=== PATIENT | male | born 1950 | race Caucasian/White ===

== ENCOUNTER 2021-06-01 03:00 | Observation (INO) | payer MEDICARE, BC, SELFPAY ==
[2021-06-01] VITALS (22 sets, daily range): BP systolic 76–139; BP diastolic 35–76; PULSE 64–95; RESP 12–22; TEMP 35.9–37.2; O2SAT 94–100; BMI 24.7
[2021-06-01] MEDS: SODIUM CHLORIDE 0.9% IV 1,000 ML 100 ML IV CONT (02:00)
--- NOTE | 2021-06-01 03:21 | ECG_ITS ---
Measurements Intervals [place] Rate: 90 P: 57 TN: 159 QRS: 12 QRSD: 98 T: 68 QT: 344 QTc: 422 Interpretive Statements SINUS RHYTHM VENTRICULAR PREMATURE COMPLEX CONSIDER INFERIOR INFARCT, AGE INDETERMINATE BORDERLINE ST-T WAVE ABNORMALITY- ANTEROLAT/HIGH LAT LEADS BASELINE WANDER- V4-V6 ABNORMAL ECG Electronically Signed On 06-01-2021 5:59:57 ASSET PROTECTION REPRESENTATIVE by Brandan Herrera D.O.
[2021-06-01 03:36] LABS: Basophils Percent Auto 0.2 % (0.2-1.2); Hematocrit 33.5 % (42.0-52.0); Hemoglobin 10.8 g/dL (14.0-18.0); Immature Granulocyte Absolute 0.06 K/mm3 (0.00-0.031); Immature Granulocyte Percent A 0.7 % (0-0.5); Lymphocytes Absolute Auto 1.56 K/mm3 (0.9-3.2); Lymphocytes Percent Auto 16.9 % (18.3-44.2); Mean Corpuscular HGB Conc 32.2 g/dl (32-36); Mean Corpuscular Volume 99.4 fl (80-100); Mean Platelet Volume 10.9 fl (7.4-10.4); Monocytes Absolute Auto 0.8 K/mm3 (0.1-0.6); Monocytes Percent Auto 8.6 % (2.6-8.5); Neutrophils Absolute Auto 6.8 K/mm3 (1.3-6.7); Neutrophils Percent Auto 73.6 % (45.5-73.1); Platelet Count Result 183 k/mm3 (150-375); Red Blood Count 3.37 M/mm3 (4.6-6.20); Red Cell Distribution Width 12.9 % (11.5-14.5); White Blood Count 9.2 K/mm3 (4.5-10.0)
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
[2021-06-01 04:28] LABS: Troponin I 0.076 ng/mL (0.000-0.034)
[2021-06-01 05:41] LABS: Lactic Acid Reflex 1.6 mmol/L (0.7-2.1)
[2021-06-01 05:41] LABS: Anion Gap 11 mmol/L (8-16); Blood Urea Nitrogen 64 mg/dL (9-20); Calcium 8.7 mg/dL (8.4-10.2); Carbon Dioxide 20 mmol/L (22-30); Chloride 109 mmol/L (98-107); Estimated CRCL calculation 66 ml/min; Estimated Glomerular Filt Rate > 60; Glucose 101 mg/dL (65-110); Potassium 4.5 mmol/L (3.4-5.0); Sodium 140 mmol/L (137-145)
[2021-06-01 07:13] LABS: Troponin I 0.088 ng/mL (0.000-0.034)
--- NOTE | 2021-06-01 07:54 | PC.NURSE ---
Recieved critical troponin that was drawn on 06/01/21 @ 0630. Elevated tropnin for patient Constantine Castillo 0.088. Dr. Lange made aware of elevated troponin @ 0725 06/01/21, no new orders given. Recieving day ANNA Higgnis made aware of lab result and communication with Dr. Lange with no new orders.
[2021-06-01] MEDS: lisinopriL 2.5 MG TABLET PO (08:27)
[2021-06-01] MEDS: hydrOXYzine HCL 25 MG TABLET PO (08:27)
[2021-06-01] MEDS: LEVOTHYROXINE SODIUM 100 MCG TABLET PO (08:27)
[2021-06-01] MEDS: METOPROLOL SUCCINATE EXT REL 25 MG TABCR PO (08:27)
[2021-06-01] MEDS: PANTOPRAZOLE SODIUM IV 40 MG VIAL IV PUSH ×2 (08:28→21:09)
[2021-06-01] MEDS: LACTATED RINGERS 1,000 ML 150 ML IV CONT (09:15)
--- NOTE | 2021-06-01 09:19 | PC.NURSE ---
JAY herman transport to GI lab without me. GI nurse transported patient to GI lab. Upper GI consent signed. Patient A&O X3. Vital signs stable
--- NOTE | 2021-06-01 09:34 | WPDANESEPPF ---
Anes - Initial Pre Proc Eval Procedure: Operation Date: 06/01/21 12:45 Proposed Procedures p Esophagogastroduodenoscopy - Vance Molina MD Date/Time: 06/01/21 09:34 Surgeon: Delia Cloud DO Pre Op Diagnosis: GI Bleed, Elevated Troponin Patient Data Age: 70 Gender: M Height: 1.75 m Weight: 76.2 kg Last Vital Signs Temp 35.9 C L 06/01/21 08:20 Pulse 95 06/01/21 08:27 Resp 20 06/01/21 08:20 BP 113/69 06/01/21 08:20 Pulse Ox 94 06/01/21 08:20 Allergies Allergy/AdvReac Type Severity Reaction Status Date / Time No Known Allergies Allergy Verified 06/01/21 09:27 Home Medications Medication Instructions Recorded Confirmed Type Acid Walking Dragline Operator (omeprazole) 20 mg PO DAILY 06/01/21 06/01/21 History Multiple Vitamin See Rx Instructions .ROUTE .COMPLEX 06/01/21 06/01/21 History aspirin 81 mg PO DAILY 06/01/21 06/01/21 History atorvastatin 40 mg PO HS 06/01/21 06/01/21 History cholecalciferol (vitamin D3) 50 mcg PO DAILY 06/01/21 06/01/21 History hydroxyzine HCl 25 mg PO DAILY 06/01/21 06/01/21 History ibuprofen 800 mg PO BID 06/01/21 06/01/21 History levothyroxine 100 mcg PO DAILY 06/01/21 06/01/21 History lisinopril 2.5 mg PO DAILY 06/01/21 06/01/21 History metoprolol succinate 25 mg PO DAILY 06/01/21 06/01/21 History prednisone 10 mg PO DAILY 06/01/21 06/01/21 History zolpidem 10 mg PO DAILY 06/01/21 06/01/21 History Laboratory Tests 06/01/21 06/01/21 06/01/21 03:30 03:30 03:31 WBC 9.2 K/mm3 K/mm3 (4.5-10.0) RBC 3.37 M/mm3 L M/mm3 (4.6-6.20) Hgb 10.8 g/dL L g/dL (14.0-18.0) Hct 33.5 % L % (42.0-52.0) MCV 99.4 fl fl (80-100) MCH 32.0 pg pg (26-34) MCHC 32.2 g/dl g/dl (32-36) RDW 12.9 % % (11.5-14.5) Plt Count 183 k/mm3 k/mm3 (150-375) MPV 10.9 fl H fl (7.4-10.4) Immature Gran % (Auto) 0.7 % H % (0-0.5) Neut % (Auto) 73.6 % H % (45.5-73.1) Lymph % (Auto) 16.9 % L % (18.3-44.2) [place] % (Auto) 8.6 % H % (2.6-8.5) Eos % (Auto) 0.0 % % (0-4.4) Baso % (Auto) 0.2 % % (0.2-1.2) Lymph # (Auto) 1.56 K/mm3 K/mm3 (0.9-3.2) [place] # (Auto) 0.8 K/mm3 H K/mm3 (0.1-0.6) Eos # (Auto) 0.0 K/mm3 K/mm3 (0-0.3) Baso # (Auto) 0.0 K/mm3 K/mm3 (0.0-0.1) Abs Immat Gran (auto) 0.06 K/mm3 H K/mm3 (0.00-0.031) Absolute Neuts (auto) 6.8 K/mm3 H K/mm3 (1.3-6.7) Absolute Nucleated RBC 0.0 K/mm3 K/mm3 (0.0-0.012) Nucleated RBC % 0.0 % % (0.0-0.2) Sodium 140 mmol/L mmol/L (137-145) Potassium 4.5 mmol/L mmol/L (3.4-5.0) Chloride 109 mmol/L H mmol/L (98-107) Carbon Dioxide 20 mmol/L L mmol/L (22-30) Anion Gap 11 mmol/L mmol/L (8-16) BUN 64 mg/dL H mg/dL (9-20) Creatinine 0.90 mg/dL mg/dL (0.7-1.3) Estim Creat Clear Calc 66 ml/min ml/min Estimated GFR > 60 (59 - ) Glucose 101 mg/dL mg/dL (65-110) Lactic Acid 1.6 mmol/L mmol/L (0.7-2.1) Calcium 8.7 mg/dL mg/dL (8.4-10.2) Troponin I 06/01/21 06/01/21 03:31 06:31 WBC RBC Hgb Hct MCV MCH MCHC RDW Plt Count MPV Immature Gran % (Auto) Neut % (Auto) Lymph % (Auto) [place] % (Auto) Eos % (Auto) Baso % (Auto) Lymph # (Auto) [place] # (Auto) Eos # (Auto) Baso # (Auto) Abs Immat Gran (auto) Absolute Neuts (auto) Absolute Nucleated RBC Nucleated RBC % Sodium Potassium Chloride Carbon Dioxide Anion Gap BUN Creatinine Estim Creat Clear Calc E
--- NOTE | 2021-06-01 09:44 | WPDGICN ---
Assessment and Plan Assessment and plan (1) Upper GI bleed: Code(s): K92.2 - Gastrointestinal hemorrhage, unspecified Status: Acute Assessment and Plan: new onset of melena with hematemesis, he has been taking nsaid's for quite some time will proceed with urgent egd started on iv protonix and nsaid's discontinued (2) Melena: Code(s): K92.1 - Melena Status: Acute Assessment and Plan: urgent egd (3) Hematemesis: Qualifiers: Nausea presence: with nausea Qualified Code(s): K92.0 - Hematemesis Code(s): K92.0 - Hematemesis Status: Acute (4) Acute blood loss anemia: Code(s): D62 - Acute posthemorrhagic anemia Status: Acute Assessment and Plan: monitor for more signs of bleeding and trend h/h on iv protonix (5) Elevated troponin: Code(s): R77.8 - Other specified abnormalities of plasma proteins Status: Acute Assessment and Plan: denies chest pain but had previous cardiac surgery ekg (6) Coronary artery disease: Code(s): I25.10 - Atherosclerotic heart disease of [place] coronary artery without angina pectoris Status: Inactive (7) NSAID long-term use: Code(s): Z79.1 - group home (current) use of non-steroidal anti-inflammatories (NSAID) Status: Acute GI Consult Note Consult date/time: 06/01/21 09:44 Reason for consult: melena HPI: Constantine Castillo is a 70 year old male with CAD s/p CABG on aspirin, HTN who has been taking ibuprofen mostly daily for last year because chronic pain in right shoulder. He says that has indigestion and reflux for which he has been taking tums as needed but no ppi, then he had injury in left shoulder few weeks ago and he was told to increase ibuprofen twice daily and also use prednisone for 2 weeks. He went to another ER after new onset of melena and also nausea with dark coffee ground emesis, denies previous GIB and never had EGD. He had colonoscopy about 4 years ago. Blood work reviewed, had mild elevated troponin, Hb 10.8 and elevated BUN 64 with normal creatinine, he was transferred to our hospital and started on iv protonix, now he is npo status. Review of Systems Constitutional: Constitutional: Reports weakness Eyes: Eyes: Denies blurry vision ENT: Reports Normal hearing present Cardiovascular: Cardiovascular: Denies chest pain Respiratory: Respiratory: Denies dyspnea Gastrointestinal: Gastrointestinal: Reports melena, Reports nausea and Reports vomiting Genitourinary: Genitourinary: Denies dysuria Musculoskeletal: Comments: shoulder pain Integumentary/Breasts: Skin/Breast: Denies dry skin Neurologic: Denies headache(s) Psychiatric: Psychiatric: Denies behavioral changes [facility] Past Medical History Medical History (Updated 06/01/21 @ 10:27 by Vance Molina MD) Acute blood loss anemia Atrial fibrillation Status post ablation December 2019 Cataracts, bilateral Maturing cataracts Coronary artery disease Essential hypertension GERD (gastroesophageal reflux disease) Hypothyroidism Insomnia Kidney stones NSAID long-term use Vitamin D deficiency Surgical History Surgical History History of left inguinal hernia repair History of tonsillectomy Hx of CABG (~04/2011) 3 vessel CABG [facility] Family History Family History Other Adopted Unknown family medical history Social History Social History Social History: He lives at home with his of 2 years. He has 3 step children and 4 biologic children. He works for the [employer] for 30 years. 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 He drinks alcohol a couple of times a week in moderation. He denies any illicit substance use.
--- NOTE | 2021-06-01 10:29 | PC.NURSE ---
Patient back from GI lab. A&O x3, no distress noted.
[2021-06-01 11:10] LABS: Hematocrit 29.2 % (42.0-52.0); Hemoglobin 9.6 g/dL (14.0-18.0)
--- NOTE | 2021-06-01 11:43 | PM.IMPN ---
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 Status: Acute (6) Elevated troponin: Code(s): R77.8 - Other specified abnormalities of plasma proteins Status: Acute (7) Lactic acidosis: Code(s): E87.2 - Acidosis Status: Acute (8) Acute blood loss anemia: Code(s): D62 - Acute posthemorrhagic anemia Status: Acute (9) NSAID long-term use: Code(s): Z79.1 - assisted (current) use of non-steroidal anti-inflammatories (NSAID) Status: Acute (10) Snoring: Code(s): R06.83 - Snoring Status: Acute (11) Atrial fibrillation: Code(s): I48.91 - Unspecified atrial fibrillation Status: Inactive (12) Coronary artery disease: Code(s): I25.10 - Atherosclerotic heart disease of [place] coronary artery without angina pectoris Status: Acute (13) Essential hypertension: Code(s): I10 - Essential (primary) hypertension Status: Inactive Additional Plan Patient has upper GI bleed evidence by hematemesis and melena as well as elevated BUN. At the outside facility the patient received 1 L normal saline bolus and PPI therapy. Gastroenterology was contacted and agreed to consult. GI bleed likely due to recent use of ibuprofen and prednisone. Ibuprofen and prednisone were held. Hgb 10.8 on admission but unclear on baseline. Monitored serial H&Hs and Hgb 9.6 on repeat. Add iron. His EGD showing esophageal ulcer, gastritis, duodenitis and possibly Barretts. The patient had a mild lactic acidosis at the outside facility but repeat lactic acid level normal. Will stop IV fluids. No plans to resume prednisone or ibuprofen. The patient had mildly elevated troponin at the outside facility. Here, his troponin peaked at 0.088 but overall a flat troponin profile. Patient denies chest pain or symptoms to suggest acute cardiac ischemia. EKG showing Q's in the inferior leads, PVC x1 and ST-T wave changes in lateral leads. Will discuss with his sharepoint trainer Dr Lafleur - call and left message. BP low during EGD but better now. Probably related to anesthesia. Place parameters on his anti-HTN medications. The patient snores chronically. Given his history and crowded posterior oropharynx on exam, concern for obstructive sleep apnea. Could explain the bigeminy. ApneaLink ordered for screening. Check mag level. Metoprolol and ACEI resumed. Hold ASA for 5 days per GI. Continue tele. Lipitor resumed. SCD for DVT prophylaxis. Subjective Date/time seen: 06/01/21 11:43 Interval history: 70yo male with CAD, HTN and AFib here for nausea, vomiting and melena. Assuming care. Chart reviewed. he feels better today. Just back from EGD. No CP or SOB recently prior to admission. He saw his Digital Marketing Officer last year and had LHC sometime in November that showed the grafts were open. In December, he underwent cardiac ablation for his AFib. He has occasional extra beats that his Digital Marketing Officer is aware of Exam Narrative: AF 98.7 103/60 71 12 96% ra Gen - NARD Chest - CTA bilaterally, nml RR CV - RRR S1/S2; Tele showing bigeminy Abd - Soft, NT/ND, Positive BS Ext - No pedal edema Psych - Nml mood and affect Skin - Warm and dry Objective Data Vital Signs Vital Signs: Vital Signs - 24 hr 06/01/21 02:30 06/01/21 03:00 06/01/21 05:00 Temperature 97.5 F L Pulse Rate 90 80 82 Respiratory Rate 20 Blood Pressure 139/72 Pulse Oximetry 97 06/01/21
[2021-06-01 17:14] LABS: Hematocrit 30.6 % (42.0-52.0)
[2021-06-01] MEDS: FERROUS SULFATE 324 MG TABLET PO (17:58)
[2021-06-01] MEDS: ZOLPIDEM TARTRATE (*CRX) 5 MG TABLET 10 MG PO (21:08)
[2021-06-01] MEDS: ATORVASTATIN 40 MG TABLET PO (21:08)
[2021-06-02] VITALS (9 sets, daily range): BP systolic 94–111; BP diastolic 55–64; PULSE 64–81; RESP 20; TEMP 36–36.6; O2SAT 95–98
[2021-06-02 05:12] LABS: Hematocrit 29.9 % (42.0-52.0); Hemoglobin 9.8 g/dL (14.0-18.0); Mean Corpuscular HGB Conc 32.8 g/dl (32-36); Mean Corpuscular Hemoglobin 32.8 pg (26-34); Mean Platelet Volume 11.1 fl (7.4-10.4); Platelet Count Result 160 k/mm3 (150-375); Red Blood Count 2.99 M/mm3 (4.6-6.20); Red Cell Distribution Width 13.2 % (11.5-14.5); White Blood Count 7.2 K/mm3 (4.5-10.0)
[2021-06-02] MEDS: LEVOTHYROXINE SODIUM 100 MCG TABLET PO (05:31)
[2021-06-02 05:42] LABS: Alanine Aminotransferase 13 U/L (4-50); Albumin Level 2.9 g/dL (3.5-5.1); Alkaline Phosphatase 32 U/L (38-126); Anion Gap 4 mmol/L (8-16); Aspartate Amino Transferase 18 U/L (17-59); Bilirubin,Total 0.6 mg/dL (0.2-1.3); Blood Urea Nitrogen 39 mg/dL (9-20); Calcium 8.1 mg/dL (8.4-10.2); Carbon Dioxide 23 mmol/L (22-30); Chloride 111 mmol/L (98-107); Estimated CRCL calculation 66 ml/min; Estimated Glomerular Filt Rate > 60; Glucose 104 mg/dL (65-110); Magnesium 2.1 mg/dL (1.6-2.3); Potassium 4.1 mmol/L (3.4-5.0); Sodium 138 mmol/L (137-145)
--- NOTE | 2021-06-02 09:20 | PM.DS ---
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 Status: Acute (6) Elevated troponin: Code(s): R77.8 - Other specified abnormalities of plasma proteins Status: Acute (7) Lactic acidosis: Code(s): E87.2 - Acidosis Status: Acute (8) Acute blood loss anemia: Code(s): D62 - Acute posthemorrhagic anemia Status: Acute (9) NSAID long-term use: Code(s): Z79.1 - terminal computer operator (current) use of non-steroidal anti-inflammatories (NSAID) Status: Acute (10) Snoring: Code(s): R06.83 - Snoring Status: Acute (11) Atrial fibrillation: Code(s): I48.91 - Unspecified atrial fibrillation Status: Inactive (12) Coronary artery disease: Code(s): I25.10 - Atherosclerotic heart disease of [place] coronary artery without angina pectoris Status: Acute (13) Essential hypertension: Code(s): I10 - Essential (primary) hypertension Status: Inactive DS: Summary Hospital Course Reason for hospitalization: 70yo male with CAD, HTN and AFib here for nausea, vomiting and melena. Please see H&P for details Hospital Course: Patient presents with ER at [facility] with coffee-ground emesis and melena. He was felt to have upper GI bleed evidence by hematemesis and melena as well as elevated BUN. At the outside facility,his Hgb 12.4, COVID negative and elevated Trop. The patient received 1 L normal saline bolus and PPI therapy. Gastroenterology was contacted and agreed to consult. GI bleed likely due to recent use of ibuprofen and prednisone. Ibuprofen and prednisone were started due to shoulder pain and these medications were held. Hgb 10.8 on admission here. Monitored serial H&Hs and Hgb remained stable 9-10. He underwent EGD 06/01/21 showing esophageal ulcer, gastritis, duodenitis and possibly Barretts. Biopsy's taken. The patient had a mild lactic acidosis at the outside facility but repeat lactic acid level normal. The patient had mildly elevated troponin at the outside facility. Here, his troponin peaked at 0.088 but overall a flat troponin profile. Patient denied chest pain or symptoms to suggest acute cardiac ischemia. EKG showing Q's in the inferior leads, PVC x1 and borderline ST-T wave changes in anterolateral leads. Discussed with his medical assistant Dr Lafleur. Patient had a LHC in August with some chronic findings that could explain the mild troponin leak probably related to the anemia. BP low amari-procedure once but stable since. Probably related to anesthesia. The patient snores chronically. Given his history and crowded posterior oropharynx on exam, concern for obstructive sleep apnea. Could explain the bigeminy. ApneaLink ordered showing AHI 9.4 and RI 12.4 but overall felt the evaluation period was too short to be conclusive. Patient monitored overnight. No issues. He tolerated oral intake. No CP or SOB. He overall did well as a be discharged home on 06/02/2021. Status at Discharge Cognitive/behavioral status at discharge: Stable Time Spent with Patient Time attestation: Total time spent providing and/or coordinating discharge services:35 minutes Time spent: Greater than 30 minutes Exam Narrative: AF 96.8 111/64 70 20 95% ra Gen - NARD Chest - CTA bilaterally, nml RR CV - RRR S1/S2; Tele showing bi and trigeminy Abd - Soft, NT/N
[2021-06-02] MEDS: METOPROLOL SUCCINATE EXT REL 25 MG TABCR PO (09:28)
[2021-06-02] MEDS: hydrOXYzine HCL 25 MG TABLET PO (09:29)
[2021-06-02] MEDS: FERROUS SULFATE 324 MG TABLET PO (09:29)
[2021-06-02] MEDS: lisinopriL 2.5 MG TABLET PO (09:29)
[2021-06-02] MEDS: PANTOPRAZOLE SODIUM IV 40 MG VIAL IV PUSH (09:30)
--- NOTE | 2021-06-02 09:53 | WPDANESPN ---
Anes - Prog Note Post-Op Date/Time: 06/02/21 09:53 Cardiovascular status: normal Respiratory status: normal Airway patency: baseline Mental status: baseline Post-Op hydration status: normal Vital Signs: Last Vital Signs Temp 36.0 C L 06/02/21 08:38 Pulse 70 06/02/21 09:28 Resp 20 06/02/21 08:38 BP 111/64 06/02/21 08:38 Pulse Ox 95 06/02/21 08:38 Pain Score (VAS): 0 I/O: Intake & Output 06/01/21 06/02/21 06/02/21 23:59 07:59 15:59 Intake Total 790 Output Total 900 Balance 790 -900 Laboratory Tests 06/02/21 04:51 06/02/21 04:51 06/01/21 06/01/21 06/01/21 10:42 10:42 17:07 WBC RBC Hgb 9.6 L 10.0 L Hct 29.2 L 30.6 L MCV MCH MCHC RDW Plt Count MPV Sodium Potassium Chloride Carbon Dioxide Anion Gap BUN Creatinine Estim Creat Clear Calc Estimated GFR Glucose Calcium Magnesium Total Bilirubin AST ALT Alkaline Phosphatase Troponin I 0.060 H* D Total Protein Albumin 06/02/21 06/02/21 04:51 04:51 WBC 7.2 RBC 2.99 L Hgb 9.8 L Hct 29.9 L MCV 100.0 MCH 32.8 MCHC 32.8 RDW 13.2 Plt Count 160 MPV 11.1 H Sodium 138 Potassium 4.1 Chloride 111 H Carbon Dioxide 23 Anion Gap 4 L BUN 39 H D Creatinine 0.90 Estim Creat Clear Calc 66 Estimated GFR > 60 Glucose 104 Calcium 8.1 L Magnesium 2.1 Total Bilirubin 0.6 AST 18 ALT 13 Alkaline Phosphatase 32 L Troponin I Total Protein 5.0 L Albumin 2.9 L Post-procedural complaints: none Patient Feedback: Patient satisfied with anesthetic care.
--- NOTE | 2021-06-04 09:49 | PC.NURSE ---
Gastric bx results seen by Dr. Woo and faxed to Dr. Payan
== END 2021-06-02 11:47 | disposition home or self-care (01) ==
PROVIDERS: Internal Medicine Gastroenterology; Admitting Provider Internal Medicine; PCP Family Medicine; Visit Provider Internal Medicine
PROC: 0DJ08ZZ Inspection of Upper Intestinal Tract, Via Natural or Artificial Opening Endoscopic (ICD-10-PCS; CPT 43235; principal; 2021-06-01 12:45)
DX: K22.70 Barrett's esophagus without dysplasia (principal); K29.50 Unspecified chronic gastritis without bleeding; K29.80 Duodenitis without bleeding; B96.81 Helicobacter pylori [H. pylori] as the cause of diseases classified elsewhere; K21.00 Gastro-esophageal reflux disease with esophagitis, without bleeding; K44.9 Diaphragmatic hernia without obstruction or gangrene; D62 Acute posthemorrhagic anemia; E03.9 Hypothyroidism, unspecified; E55.9 Vitamin D deficiency, unspecified; I10 Essential (primary) hypertension; I48.91 Unspecified atrial fibrillation; I25.10 Atherosclerotic heart disease of native coronary artery without angina pectoris; R06.83 Snoring; R77.8 Other specified abnormalities of plasma proteins; Z87.891 Personal history of nicotine dependence; Z79.82 Long term (current) use of aspirin; Z79.1 Long term (current) use of non-steroidal anti-inflammatories (NSAID); Z79.52 Long term (current) use of systemic steroids; Z95.1 Presence of aortocoronary bypass graft
CPT/HCPCS: 43239; 36415; 80048; 80053; 83605; 83735; 84484; 85014; 85018; 85025; 85027; 87081; 88305; 88342; 93005; 94762; 96361; 96374; A9270; C9113; G0378; J2001; J2704; J7030; J7120

== ENCOUNTER 2021-12-22 00:16 | Day surgery (SDC) | payer MEDICARE, BC, SELFPAY ==
[2021-11-26 13:36] VITALS: BMI 25.1
[2021-12-22 08:54] VITALS: BP 122/74; PULSE 54; RESP 18; TEMP 36.1; O2SAT 100
--- NOTE | 2021-12-22 09:02 | WPDANESEPPF ---
Anes - Initial Pre Proc Eval Procedure: Operation Date: 12/22/21 10:15 Proposed Procedures p Esophagogastroduodenoscopy - Vance Molina MD Date/Time: 12/22/21 09:02 Surgeon: Vance Molina MD Pre Op Diagnosis: gastritis, esophageal ulcer Patient Data Age: 71 Gender: M Height: 1.78 m Weight: 79.5 kg Last Vital Signs Temp 36.1 C L 12/22/21 08:54 Pulse 54 L 12/22/21 08:54 Resp 18 12/22/21 08:54 BP 122/74 12/22/21 08:54 Pulse Ox 100 12/22/21 08:54 O2 Del Method Room Air 12/22/21 08:54 Allergies Allergy/AdvReac Type Severity Reaction Status Date / Time No Known Allergies Allergy Verified 12/22/21 08:52 Home Medications Medication Instructions Recorded Confirmed Type levothyroxine 100 mcg tablet 100 mcg PO DAILY 06/01/21 12/22/21 History lisinopril 2.5 mg tablet 2.5 mg PO DAILY 06/01/21 12/17/21 History metoprolol succinate 25 mg 25 mg PO DAILY 06/01/21 12/22/21 History tablet,extended release 24 hr zolpidem 10 mg tablet 12.5 mg PO HS PRN Insomnia 06/01/21 12/17/21 History pantoprazole 40 mg tablet,delayed 40 mg PO BID #60 tabs 11/12/21 12/17/21 Rx release (Protonix) aspirin 81 mg chewable tablet 81 mg PO DAILY 11/26/21 12/17/21 History atorvastatin 40 mg tablet 40 mg PO DAILY 11/26/21 12/17/21 History cholecalciferol (vitamin D3) 50 50 mcg PO DAILY 11/26/21 12/17/21 History mcg (2,000 unit) tablet diazepam 5 mg tablet 5 mg PO Q8H PRN Anxiety 11/26/21 12/17/21 History multivitamin 1 tablet PO DAILY 11/26/21 12/17/21 History Patient hx anesthesia problems: none Family hx anesthesia problems: none Results Review: All pre-operative results and documents have been reviewed as part of the pre-operative evaluation. [facility] Past Medical History Medical History Atrial fibrillation Status post ablation December 2019 Cataracts, bilateral Maturing cataracts Coronary artery disease Essential hypertension GERD (gastroesophageal reflux disease) Hypothyroidism Insomnia Kidney stones NSAID long-term use Vitamin D deficiency Surgical History Surgical History History of left inguinal hernia repair History of tonsillectomy Hx of CABG (~04/2011) 3 vessel CABG [facility] Family History Family History Other Adopted Unknown family medical history Social History Social History Social History: He lives at home with his of 2 years. He has 3 step children and 4 biologic children. He works for the [employer] for 30 years. 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 He drinks alcohol a couple of times a week in moderation. He denies any illicit substance use. Code status: Full code Surrogate decision maker: Smoking packs per day: 1 Smoking cigarettes per day: 20.0 Years smoked: 45 Smoking pack-years: 45.00 Smoking status: Former smoker Tobacco type: cigarettes Second hand tobacco smoke exposure: No Alcohol intake: current Drinks per week: 4 Substance use: never Substance use type: does not use Living arrangements: with family Spiritual care concerns: No Anes - Eval Final PreProcedure Day of Procedure 12/22/21 09:02 Patient weight: normal Heart: regular rate and rhythm Lungs: clear to auscultation Airway: Mallampati scale class II Neurological: alert and oriented Last oral intake: >/= 8 hours ASA classification: III Emergent: no Anesthetic plan: proceed Anesthesia type and monitoring: general GIVS and standard monitoring Results Review: All pre-operative results and documents have been reviewed as part of the pre-operative evaluation. Informed Consent: The patient's anesthetic
[2021-12-22] MEDS: LACTATED RINGERS 1,000 ML 150 ML IV CONT (09:07)
--- NOTE | 2021-12-22 09:56 | PM.HPGS ---
History of Present Illness History of Present Illness Consent: Risks, benefits, and alternatives have been discussed and questions answered. Patient agrees to proceed with procedure. Chief complaint: gastritis, esophageal ulcer Narrative: Constantine Castillo is a 71 year old male with ulcer at [facility] [place] and H pylori s/p treatment, doing well now using ppi Review of Systems Constitutional: Constitutional: Denies headache(s) and Denies weakness Eyes: Eyes: Denies blurry vision ENT: Reports Normal hearing present, Denies headache(s) and Denies neck pain Cardiovascular: Cardiovascular: Denies chest pain and Denies dyspnea Respiratory: Respiratory: Denies dyspnea Gastrointestinal: Gastrointestinal: Reports no additional gastrointestinal complaints Genitourinary: Genitourinary: Denies dysuria Musculoskeletal: Musculoskeletal: Denies neck pain Integumentary/Breasts: Skin/Breast: Denies dry skin Neurologic: Reports Normal hearing present, Denies headache(s) and Denies weakness Psychiatric: Psychiatric: Denies anxiety Endocrine: Endocrine: Denies change in body appearance Hematologic/Lymphatic: Hematologic/Lymphatic: Denies easy bleeding Allergic/Immunologic: Allergic/Immunologic: Denies urticaria [facility] Past Medical History Medical History Atrial fibrillation Status post ablation December 2019 Cataracts, bilateral Maturing cataracts Coronary artery disease Essential hypertension GERD (gastroesophageal reflux disease) Hypothyroidism Insomnia Kidney stones NSAID long-term use Vitamin D deficiency Surgical History Surgical History History of left inguinal hernia repair History of tonsillectomy Hx of CABG (~04/2011) 3 vessel CABG [facility] Family History Family History Other Adopted Unknown family medical history Social History Social History Social History: He lives at home with his of 2 years. He has 3 step children and 4 biologic children. He works for the [employer] for 30 years. 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 He drinks alcohol a couple of times a week in moderation. He denies any illicit substance use. Code status: Full code Surrogate decision maker: Smoking packs per day: 1 Smoking cigarettes per day: 20.0 Years smoked: 45 Smoking pack-years: 45.00 Smoking status: Former smoker Tobacco type: cigarettes Second hand tobacco smoke exposure: No Alcohol intake: current Drinks per week: 4 Substance use: never Substance use type: does not use Living arrangements: with family Spiritual care concerns: No Meds Home Medications and Allergies Home Medications Medication Instructions Recorded Confirmed Type levothyroxine 100 mcg tablet 100 mcg PO DAILY 06/01/21 12/22/21 History lisinopril 2.5 mg tablet 2.5 mg PO DAILY 06/01/21 12/17/21 History metoprolol succinate 25 mg 25 mg PO DAILY 06/01/21 12/22/21 History tablet,extended release 24 hr zolpidem 10 mg tablet 12.5 mg PO HS PRN Insomnia 06/01/21 12/17/21 History pantoprazole 40 mg tablet,delayed 40 mg PO BID #60 tabs 11/12/21 12/17/21 Rx release (Protonix) aspirin 81 mg chewable tablet 81 mg PO DAILY 11/26/21 12/17/21 History atorvastatin 40 mg tablet 40 mg PO DAILY 11/26/21 12/17/21 History cholecalciferol (vitamin D3) 50 50 mcg PO DAILY 11/26/21 12/17/21 History mcg (2,000 unit) tablet diazepam 5 mg tablet 5 mg PO Q8H PRN Anxiety 11/26/21 12/17/21 History multivitamin 1 tablet PO DAILY 11/26/21 12/17/21 History Allergies Allergy/AdvReac Type Severity Reaction Status Date / Time No Known Allergies Allergy Verified 12/22/21 08:52 Vital Signs Vital Signs - 24 hr
[2021-12-22 10:25] VITALS: BP 92/55; PULSE 51; RESP 15; O2SAT 92
[2021-12-22 10:35] VITALS: BP 98/59; PULSE 50; RESP 17; O2SAT 97
[2021-12-22 10:45] VITALS: BP 119/76; PULSE 54; RESP 19; O2SAT 97
== END 2021-12-22 11:03 | disposition home or self-care (01) ==
PROVIDERS: Visit Provider Internal Medicine Gastroenterology
PROC: 0DJ08ZZ Inspection of Upper Intestinal Tract, Via Natural or Artificial Opening Endoscopic (ICD-10-PCS; CPT 43235; principal; 2021-12-22 10:15)
DX: K21.9 Gastro-esophageal reflux disease without esophagitis (principal); K44.9 Diaphragmatic hernia without obstruction or gangrene; K22.70 Barrett's esophagus without dysplasia; K29.50 Unspecified chronic gastritis without bleeding; I48.91 Unspecified atrial fibrillation; I25.10 Atherosclerotic heart disease of native coronary artery without angina pectoris; I10 Essential (primary) hypertension; E03.9 Hypothyroidism, unspecified; G47.00 Insomnia, unspecified; E55.9 Vitamin D deficiency, unspecified; Z95.1 Presence of aortocoronary bypass graft; Z87.891 Personal history of nicotine dependence; Z79.82 Long term (current) use of aspirin; Z87.11 Personal history of peptic ulcer disease
CPT/HCPCS: 43239; 87081; 88305; 88342; J2704; J7120

== ENCOUNTER 2025-02-12 00:23 | Day surgery (SDC) | payer MEDICARE, BC, SELFPAY ==
--- NOTE | 2025-02-05 13:24 | SUR.PREOP ---
Spoke with Dr. Benavides about patient not being able to ideally hold his Plavix until 09-21-[address] Julien Lafleur. Discussed with Dr. Benavides his findings from his EGD in 2021. Dr. Benavides ok with pt proceeding with his EGD on 02/12 and not holding his Plavix prior to his upcoming EGD procedure.
[2025-02-07 10:54] VITALS: BMI 26.6
--- NOTE | 2025-02-07 11:41 | PC.NURSE ---
Pt verbalizes understanding that he is not to hold plavix or his aspirin for the procedure.
--- OUTSIDE RECORDS SUMMARY | 2025-02-12 00:27 | XMS_ITS | Clinical Summary ---
Author Organization [facility] Address [facility] [place] [address] Care Team Providers Care Payroll Supervisor Name Role Phone Non-Staff, Provider Primary Care Provider Unavai lable Allergies No known active allergies Medications Cholecalciferol (VITAMIN D) 50 MCG (1999) Tab Take 2 tablets by mouth daily. Active ATORVASTATIN 40 MG tabletIndications:H igh cholesterol TAKE 1 TABLET BY MOUTH EVERY DAY AT BEDTIME 90 tablet 1 Active Aspirin Buf,LlVhft-LsGsom-D gO, 81 MG Tab Active Multiple Vitamin (DAILY-JHONNY) Tab Take 1 tablet by mouth daily. Active omeprazole 20 MG capsule Take 20 mg by mouth daily. Active hydrOXYzine 25 MG tabletIndications:I nsomnia Take 1 tablet by mouth daily as needed for sleep if wake up during the night. Do not take at same time as Zolpidem 30 tablet 2 1 Active levothyroxine 100 MCG tabletIndications:A cquired hypothyroidism Take 1 tablet (100 mcg total) by mouth every morning. 90 tablet 1 2 Active lisinopril 2.5 MG tabletIndications:E ssential hypertension Take 1 tablet (2.5 mg total) by mouth daily. 90 tablet 1 2 Active metoprolol succinate ER 25 MG 24 hr tabletIndications:E ssential hypertension Take 0.5 tablets (12.5 mg total) by mouth daily. 45 tablet 1 2 Active multi vitamin/minerals tablet Take 1 tablet by mouth. Active pantoprazole EC 40 MG tablet Take 40 mg by mouth daily. Active ferrous sulfate EC 325 (65 Fe) MG tabletIndications:A nemia, unspecified type Take 1 tablet (325 mg total) by mouth daily with breakfast. 90 tablet 2 Active zolpidem CR 6.25 MG tabletIndications:I nsomnia Take 1 tablet (6.25 mg total) by mouth nightly as needed for Sleep. 30 tablet 2 Active oxyCODONE-acetamino phen 5-325 MG tablet Take 43,467 tablets by mouth every 4 (four) hours as needed. FOR PAIN 2 Active traMADol 50 MG tablet Take 2,173,350 mg by mouth every 8 (eight) hours as needed. FOR PAIN 2 Active diazePAM 5 MG tablet Take 5 mg by mouth every 8 (eight) hours as needed. 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 06/05/2021 Acute blood loss anemia (ABLA) 06/05/2021 Heart attack 09/06/2019 Hypothyroid 09/06/2019 High cholesterol 09/06/2019 Coronary artery disease invo lving [place] coronary artery of [place] heart without angina pectoris 09/06/2019 Essential hypertension 09/06/2019 Encounters Date Type Department Care Team Description 11/20/2024 10:21 AM CDT - 11/20/2024 11:36 AM CDT Emergency [facility] [place] [address] Tricia Aparicio, GARAGE DOOR HANGER Foot Swelling Discharge Disposition: Home or Self Care (Routine Discharge) 11/20/2024 Travel from Last 3 Months Immunizations Immunization Administration Dates Next Due Fluzone High Dose - >Age 65 (Prefilled Syringe) 03/07/2020,04/23/2019,01/24/2017 [employer]Tu ([employer]) COVID-19 AD26 VACCINE 0.5 ML IM SUSP 06/20/2020 PFIZER COVID-19 (ORIGINAL FO RMULATION, PURPLE CAP) mRNA, LNP-S, PF, 30 MCG/0.3 ML DOSE 04/08/2021 Pneumococcal (Pneumovax 23) 08/07/2018, 2 Pneumococcal (Prevnar 13) 07/25/2015 Tdap (Generic) 06/12/2015 Family History * Patient is adopted Relation Status Comments Father Mother Social History Tobacco Use Types Packs/Day Years Used Date Smoking Tobacco: Former Cigarettes Q uit: 05/08/2010 Smokeless Tobacco: Never Tobacco Cessation:Counseling Given: No Alcohol Use Standard Drinks/Week Comments Yes 0 (1 standard drink = 0.6 oz pur e alcohol) occsionally PHQ-2 Answer Date Recorded PHQ-2 Score - If the patient scores above 3, please move on to questions 3-9 0 04/21/2021 Sex and Gender Information Value Date Recorded Sex Assigned at Not on file Legal Sex Male 2:04 PM CDT Gender Identity Not on file Sexual Orientation Not on file Last Filed Vital Signs Vital Sign Reading Time Taken Comments Blood Pressure 143/85 11/20/2024 11:28 AM CDT Pulse 63 11/20/2024 11:28 AM CDT Temperature 36.8 C (98.2 F) 11/20/2024 9:56 AM CDT Respiratory Rate 18 11/20/2024 11:28 AM CDT Oxygen Saturation 100% 11/20/2024 11:28 AM CDT Inhaled Oxygen Concentration - - Weight 81.6 kg (180 lb) 11/20/2024 9:56 AM CDT Height 175.3 cm (5' 9) 11/20/2024 9:56 AM CDT Body Mass Index 26.58 11/20/2024 9:56 AM CDT Plan of Treatment Health Maintenance Due Date Last Done Comments ASCVD Statin 1950 Colorectal Cancer Screening Colonoscopy (10 Years) 1950 EGD-Khan's Surveillance 1950 Hepatitis C 08/05/1967 Zoster Vaccines (1 of 2) 08/05/1999 Annual Medicare Wellness Visit 2014 ASCVD LDL 03/07/2021 03/07/2020 RSV Immunization or 60+ Years (1 - 1-dose 75+ series) 2024 COVID-19 Vaccine ( - season) 2024 04/08/2021, 06/20/2020 Influenza Adult (#1) 2025 02/15/2024, 03/07/2020, 04/23/2019, Additional history exists DTaP, Tdap and Td Vaccines (2 - Td or Tdap) 06/12/2025 06/12/2015 AAA SCREENING Completed 04/21/2017, 12/29/2015 Pneumococcal Vaccine: 50+ Years Completed 08/07/2018, 07/25/2015, 03/14/2012 Hepatitis A Vaccines Aged Out No long er eligible based on patient's age to complete this topic Meningococcal B Vaccine Aged Out No l onger eligible based on patient's age to complete this topic Meningococcal Vaccine Aged Out No helen julia eligible based on patient's age to complete this topic RSV Immunizations Under 20 Months Aged Out No longer eligible based on patient's age to complete this topic Procedures Procedure Name Priority Date/Time Associated Diagnosis Comments XR ANKLE RT M3V STAT 11/20/2024 10:53 AM CDT LIPID PANEL Routine 03/07/2020 8:13 AM FIRE MANAGEMENT TECHNICIAN High cholesterol from Last 3 Months or Most Recently Relevant to Health Maintenance Results * XR ANKLE RT M3V (11/20/2024 10:53 AM CDT) Anatomical Region Laterality Modality Ankle Radiographic Kaylin ging 11/20/2024 10:5 9 AM CDT Impressions 11/20/2024 11:02 AM CDT =====IMPRESSION:===== 1. Nonspecific soft tissue swelling. 2. Atherosclerosis. 3. No acute bone abnormality demonstrated. Ordered By: TRICIA APARICIO Interpreted By: Boaz Ortiz MD, 11/20/2024 10:59 AM Narrative 11/20/2024 11:02 AM CDT [facility] [address] [place], [place] [address] Exam date/time: 11/20/2024 10:36 AM Examination: Right ankle 3 views Reason For Exam: Right ankle pain and swelling Comparison: None Findings: No acute fracture or dislocation. The bones well aligned. Joint spaces are intact. Minimal degenerative changes with a few tiny spurs. Minimal vascular calcifications. Mild diffuse soft tissue swelling. No radiopaque foreign bodies. Procedure Note Boaz Ortiz MD - 11/20/[address] [address] Exam date/time: 11/20/2024 10:36 AM Examination: Right ankle 3 views Reason For Exam: Right ankle pain and swelling Comparison: None Findings: No acute fracture or dislocation. The bones well aligned. Jointspaces are intact. Minimal degenerative changes with a few tiny spurs.Minimal vascular calcifications. Mild diffuse soft tissue swelling. Noradiopaque foreign bodies. =====IMPRESSION:===== 1. Nonspecific soft tissue swelling. 2. Atherosclerosis. 3. No acute bone abnormality demonstrated. Ordered By: TRICIA APARICIO Interpreted By: Boaz Ortiz MD, 11/20/2024 10:59 AM Tricia Aparicio GARAGE DOOR HANGER [facility] Final Resul t * (ABNORMAL) LIPID PANEL (03/07/2020 8:13 AM FIRE MANAGEMENT TECHNICIAN) CHOLESTEROL 113 <200.0 MG/DL 03/07/2020 2:49 PM FIRE MANAGEMENT TECHNICIAN [facility] TRIGLYCERIDES 65 <150 MG/DL 03/07/2020 2:49 PM FIRE MANAGEMENT TECHNICIAN [facility] HDL 38(L) >40.0 MG/DL 03/07/2020 2:49 PM FIRE MANAGEMENT TECHNICIAN [facility] LDL (CALCULATED) 62 <100 MG/DL 03/07/20 2:49 PM FIRE MANAGEMENT TECHNICIAN [facility] NON HDL CHOLESTEROL 75 <130 MG/DL 03/07 2:49 PM FIRE MANAGEMENT TECHNICIAN [facility] CHOL/HDL RATIO 3.0 0.0 - 4.5 03/07/2020 2:49 PM [facility] VLDL CALCULATION 13 5 - 55 MG/DL 03/07/2020 2:49 PM [facility] LIPID INTERPRETATION 03/07/2020 2:49 PM [facility] Comment: [facility] CONCENSUS REPORT RECOMMENDATIONS: ADULT CHILD LOW RISK: CHOLESTEROL <200 <170 TRIGLYCERIDE <150 --- HDL >=60 --- LDL <100 <110 BORDERLINE: CHOLESTEROL 200-239 170-199 TRIGLYCERIDE 150-199 --- HDL 40-59 --- LDL 100-159 110-129 HIGH RISK: CHOLESTEROL >=240 >=200 TRIGLYCERIDE >=200 --- HDL <40 --- LDL >=160 >=130 03/07/2020 8:13 AM FIRE MANAGEMENT TECHNICIAN us Hardeep Payan MD LABORATORY Final Resul t [facility] [address] [place] [address], from Last 3 Months or Most Recently Relevant to Health Maintenance Insurance MEDICARE [facility] Care Teams Payroll Supervisor Relationship Specialty Start Date End Date Non-Staff, Provider PCP - General 07/23/21
--- OUTSIDE RECORDS SUMMARY | 2025-02-12 00:28 | XMS_ITS | Clinical Summary ---
Author Organization [facility] Address [address] [place] [address] Care Team Providers Care Engine Turner Name Role Phone Alon Ventura MD Primary Care Provid er Allergies Active Allergy Reactions Criticality Noted Date Comments No Known Allergies 06/22/2002 Medications pantoprazole (PROTONIX) 40 mg Tablet, Delayed Release (E.C.) Take 40 mg by mouth daily. 06/02/19 22 Active cholecalciferol, Vitamin D3, 50 mcg (2,000 unit) Tablet Take 2 Tablets by mouth daily. Active aspirin (ECOTRIN EC) 81 mg Tablet, Delayed Release (E.C.) Take by mouth. Active traZODone (DESYREL) 50 mg tablet One nightly 04/14/20 23 Active Miebo, PF, 100 % Drops 07/31/19 25 Active atorvastatin (LIPITOR) 40 mg tablet TAKE 1 TABLET(40 MG) BY MOUTH DAILY AT BEDTIME 100 Tablet 3 11/21/19 25 Active lisinopriL (PRINIVIL) 2.5 mg tabletIndication s:Essential hypertension TAKE 1 TABLET(2.5 MG) BY MOUTH DAILY 90 Tablet 11/15/19 25 Active busPIRone (BUSPAR) 5 mg tabletIndication s:Anxiety state TAKE 1 TABLET(5 MG) BY MOUTH TWICE DAILY 180 Tablet 11/24/19 25 Active sildenafiL (VIAGRA) 25 mg tablet Take 1 Tablet (25 mg) by mouth 1 time daily as needed for Erectile Dysfunction. 10 Tablet 3 12/19/19 25 Active zolpidem (AMBIEN CR) 12.5 mg Controlled Release tabletIndication s:Insomnia, unspecified type TAKE 1 TABLET(12.5 MG) BY MOUTH EVERY NIGHT NEEDED FOR INSOMNIA 90 Tablet 12/19/19 25 Active metoprolol succinate (TOPROL XL) 25 mg Extended Release 24 hour tabletIndication s:PVC (premature ventricular contraction) Take 0.5 Tablets (12.5 mg) by mouth daily. 90 Tablet 1 01/05/20 25 Active levothyroxine 100 mcg tabletIndication s:Hypothyroidism , unspecified type TAKE 1 TABLET BY MOUTH DAILY BEFORE BREAKFAST 90 Tablet 01/11/20 25 Active clopidogreL (PLAVIX) 75 mg Tablet TAKE 1 TABLET BY MOUTH EVERY DAY 150 Tablet 01/18/20 25 Active clopidogreL (PLAVIX) 75 mg Tablet Starting 09/23: Take 1 Tablet (75 mg) by mouth daily. 90 Tablet 1 5 10:02 AM CDT 09/24/19 25 025 Discontinued Active Problems Patient Care Coordination No te Formatting of this note migh t be different from the original. Court Monitor - Dr. Joey Lafleur EP - Les Tellez NP Problem Noted Date Diagnosed Date S/P drug eluting coronary st ent placement. ROBE to the RCA 10/1009/22/2024 Prediabetes 05/16/2023 PVC (premature ventricular contraction). Ablatio n 202002/10/2021 Cardiomyopathy. EF 40% in 20 21 (possible PVC induced/ischemic) 02/10/2021 Mixed hyperlipidemia 10/03/2017 Gastroesophageal reflux disease 06/14/2017 Insomnia 06/14/2017 Hypothyroidism 06/14/2017 Essential hypertension 03/18/2015 S/P CABG x 3, [facility] 04/29 , occluded SVG to LCx (now chronically occluded) 03/19/2014 S/P CABG x 3, [facility] 04/2903/27/2013 CAD (coronary artery disease) 03/27/2013 Old myocardial infarction 09/19/2012 Resolved Problems Problem Noted Date Diagnosed Date Resolved Date Mixed hyperlipidemia, mild i nferior hypokinesis 03/27/2013 12/14/2022 Mixed hyperlipidemia 09/19/2012 015 HTN (hypertension) 09/19/2012 8 Depressive disorder, not elsewhere classified 06/23/19 03 07/07/2021 Tobacco use disorder 06/22/2002 022 Encounters Date Type Department Care Team Description 02/05/2025 External Device Data ST[facility] ABSTRACTION Provider, Abstract 01/29/2025 Telephone [facility] At [address] [place] [address] Julien Lafleur MD egd question 01/17/2025 Refill [facility] [address] [place] [address] Ana Benitez, NAVIN 01/10/[address] [address] Alon Ventura MD Hypothyroidism, unspecified type 01/03/2025 Refill [facility] [address] [place] [address] Julien Lafleur MD PVC (premature ventricular contraction). Ablation 202001/03/[address] [address] Alon Ventura MD 01/01/2025 External Device Data [facility] ABSTRACTION Provider, Abstract 12/18/[address] [address] Alon Ventura MD Insomnia, unspecified type 12/05/2024 11:30 AM CDT Office Visit [address] [phone] Yael Cabrera FNP Follow-up exam after treatment (Primary Dx); Insomnia, unspecified type 11/29/[address] [address] Alon Ventura MD H f/up 11/23/2024 1:58 PM CDT - 11/23/2024 11:59 PM CDT Hospital Encounter [facility] Imaging Services [address] [address] [phone] Alon Ventura MD Discharge Disposition: Home or Self Care 11/23/2024 Results Follow-Up [address] [address] LUNG SCREENING (FOLLOW UP LOW DOSE) 11/23/[address] [phone] Alon Ventura MD Anxiety state 11/13/[address] [phone] Alon Ventura MD Essential hypertension from Last 3 Months Immunizations Immunization Administration Dates Next Due (ADACEL/BOOSTRIX)(10 YR UP) TDAP VACCINE, 0.5ML, IM 06/12/2015 (FELISHA) COVID-19 VACCINE - EMERGENCY USE AUTHORIZATION, AD26,COV2S(PF) 0.5 ML IM SUSP 06/20/2020 (PNEUMOVAX 23)(50 YRS UP) PN EUMOCOCCAL POLYSACCHARIDE (PPV23) 0.5 ML, IM 08/07/2018,03/14/2012 (PREVNAR 13)(6 WKS UP) PNEUM OCOCCAL CONJUGATE (PCV13) 0.5 ML, IM 07/25/2015 INFLUENZA VACCINE HIGH DOSE QUADRIVALENT 65 YR UP PF IM 03/07/2020,04/23/2019,01/24/2017 INFLUENZA VACCINE HIGH DOSE TRIVALENT SPLIT VIRUS, (65 YR UP), 0.5ML (PF), IM 02/15/2024 Social History Tobacco Use Types Packs/Day Years Used Date Smoking Tobacco: Former Cigarettes 1 45 0 06/09/1965 - 06/09/2010 Tobacco Cessation:Counseling Given: Not Answered Alcohol Use Standard Drinks/Week Comments Not Currently 12 (1 standard drink = 0.6 oz pu re alcohol) very rare Financial Resource Strain Answer Date R ecorded How hard is it for you to pa y for the very basics like food, housing, medical care, and heating? Not hard at all 11/11/2022 Food Insecurity Answer Date Recorded In the past 12 months, have you worried that your food would run out before you had money to buy more? Never true 11/11/2022 In the past 12 months, did y ou run out of food and didn't have money to buy more? Never true 11/11/2022 Transportation Needs Answer Date Record ed In the past 12 months, has l ack of transportation kept you from medical appointments or from getting medications? No 11/11/2022 Lack of Transportation (Non-Medical) Not on file 11/11/2022 Sex and Gender Information Value Date Recorded Sex Assigned at Not on file Legal Sex Male 3:08 AM BRAID PATTERN SETTER Gender Identity Not on file Sexual Orientation Not on file Occupation Industry Job Start Date Job End Date Not on file Not on file Not on file Not on file Last Filed Vital Signs Vital Sign Reading Time Taken Comments Blood Pressure 132/70 12/05/2024 12:10 PM CDT Pulse 60 12/05/2024 11:29 AM CDT Temperature 36.7 C (98.1 F) 12/05/2024 11:29 AM CDT Respiratory Rate 16 12/05/2024 11:29 AM CDT Oxygen Saturation 96% 12/05/2024 11:29 AM CDT Inhaled Oxygen Concentration - - Weight 82.2 kg (181 lb 3.2 oz) 12/05/2024 11:29 AM CDT Height 175.3 cm (5' 9) 12/05/2024 11:29 AM CDT Body Mass Index 26.76 12/05/2024 11:29 AM CDT Plan of Treatment Upcoming Encounters Date Type Department Care Team (Late st Contact Info) Description 02/13/2025 10:30 AM CDT Office Visit [facility] [place] [address] [place] [address] Julien Lafleur MD [address] [place] [phone] 03/19/2025 11:30 AM BRAID PATTERN SETTER Office Visit [facility] Family Medicine - [address] [place] [phone] Alon Ventura MD [address] [facility] [address] [place] [address] 04/23/2025 11:00 AM BRAID PATTERN SETTER Office Visit [facility] [place] [address] [place] [address] Julien Lafleur MD [address] [facility] [place] [address] Health Maintenance Due Date Last Done Comments FIT/ DNA Q 3 YEARS (AUTO ORDER) 08/05/1967 FIT-DNA Q 3 years 1994 Flex Sig/CT Colonography Q 5 years 1994 ZOSTER VACCINE (1 of 2) 08/05/1999 FIT/FOBT Q 1 YEAR (AUTO ORDER) 06/22/2003 06/21/2002 FIT/FOBT Q 1 year 06/22/2003 06/21/2002 FLEX SIG/CT COLONOGRAPHY Q 5 YEARS (AUTO ORDER) 12/30/2020 12/31/2015, 12/31/2015 RSV VACCINE (60+ or ) (1 - 1-dose 75+ series) 2024 INFLUENZA VACCINE (#1) 2024 , 03/07/2020, 04/23/2019, Additional history exists COVID-19 Vaccine (3 - 2024-2 6 season) 2024 04/08/2021, 06/20/2020 Traditional Medicare (ACO) A nnual Wellness Visit 02/15/2025 02/15/2024, 11/11/2022, 10/26/2021 Lung Cancer Screening 05/30/2025 05/30/2024 DTAP/TDAP/TD VACCINES (2 - T d or Tdap) 06/12/2025 06/12/2015 COLORECTAL CANCER SCREENING (AUTO ORDER) 12/30/2025 12/31/2015, 12/31/2015 COLORECTAL SCREENING 12/30/2025 12/31/2015, 12/31/2015, 05/02/2015 (Previously completed) Colorectal Cancer Screening (AUTO ORDER) 12/30/2025 Colorectal Cancer Screening 12/30/2025 Abdominal Aortic Aneurysm (A AA) Screening Completed 12/29/2015 PNEUMOCOCCAL VACCINE 50+ YEARS Completed 0 08/07/2018, 01/30/2017 (Previously completed), 07/25/2015, Additional history exists Medical Devices Implanted Type Area Ordnance Technician Device Identifier Shelf Expiration Date Model / Serial / Lot Closure Perclose Proglide [id number] - [id number] Implanted:Qt y: 1 on 01/07/2021 by Albertina York MD at [facility] Closure Device Right: Groin HAJI- VASC DEVICE 08/15/2022 [id number] / / [id number] Stent Synergy Xd [id number] Evrlms Elut [id number] - [id number] Implanted:Qt y: 1 on 09/21/2024 by Julien Lafleur MD at [facility] Stent Right: [employer] HOA [id number] 10/17/2025 [id number] / / [id number] Procedures Procedure Name Priority Date/Time Associated Diagnosis Comments CT LUNG SCREENING (FOLLOW UP LOW DOSE) Routine 11/23/2024 2:35 PM CDT Lung nodule CT LUNG SCREENING (LDCT BASELINE OR ANNUAL) Routine 05/30/2024 11:15 AM BRAID PATTERN SETTER History of tobacco abuse Screening for lung cancer from Last 3 Months or Most Recently Relevant to Health Maintenance Results * CT LUNG SCREENING (FOLLOW UP LOW DOSE) (11/23/2024 2:35 PM CDT) Anatomical Region Laterality Modality Chest Computed Tomogra phy 11/23/2024 2:26 PM CDT Impressions 11/23/2024 4:25 PM CDT IMPRESSION: 1. Category 2 (benign appearance or behavior, <1% chance of malignancy) - continue annual screening with LDCT. DICTATION LOCATION: Location [facility] 11/23/2024 4:25 PM CDT EXAMINATION: CT LUNG SCREENING (FOLLOW-UP LOW-DOSE) DATE: 11/23/2024 2:35 PM TECHNIQUE: CT of the chest was performed without intravenous contrast using a low-dose CT (LDCT) technique according to low-dose lung screening chest CT protocol. The examination was performed with the adjustment of mA according to the patient size and/or the use of Iterative Reconstruction Technique. HISTORY: High-risk screening for lung cancer. Lung nodule, 6-8mm COMPARISON: 05/30/2024 LIMITATIONS: Low-dose, noncontrast technique limits evaluation of the solid viscera and mediastinum. PULMONARY FINDINGS: Nodule 1: 6 mm solid pulmonary nodule in the left lower lobe series 3 (image 283) is unchanged. Lung-RADS (Lung Imaging Reporting and Data System) Category: Category 2 (benign appearance or behavior, <1% chance of malignancy) - category 3 nodules that are stable or decreased at 6 months. Additional calcified pulmonary nodules are seen with specific findings favoring benign nodules. There is mild bibasilar atelectasis. No focal lung consolidation, pneumothorax or pleural effusion. There are changes of pulmonary emphysema. There is pleural scarring at the lung apices, right greater than left. ADDITIONAL FINDINGS: The central airways are widely patent. The aorta is of normal course and normal caliber with mild atherosclerotic calcification. No supraclavicular, axillary, mediastinal, or hilar lymphadenopathy is seen. The heart is enlarged without pericardial effusion. There is coronary artery calcification. Thyroid is enlarged and heterogeneous. Left adrenal nodule is unchanged. No suspicious lytic or blastic osseous lesion or acute fracture. Alon Ventura MD CT ORDERABLES Steph l Result * CT LUNG SCREENING (LDCT BASELINE OR ANNUAL) (05/30/2024 11:15 AM BRAID PATTERN SETTER) Anatomical Region Laterality Modality Chest Computed Tomogra phy 05/30/2024 11:1 3 AM BRAID PATTERN SETTER Impressions 05/30/2024 11:40 AM BRAID PATTERN SETTER IMPRESSION: 1. 5 mm nodule along the left major fissure in the left lower lobe. LUNG RADS Category Lung RADS: Category 3 (Probably Benign); Recommend followup LDCT in 6 months DICTATION LOCATION: [address] 05/30/2024 11:40 AM BRAID PATTERN SETTER CT LUNG SCREENING - LOW DOSE COMPUTED TOMOGRAPHY OF THE THORAX WITHOUT CONTRAST DATE: 05/30/2024 11:15 AM HISTORY: Lung cancer screening, >= 20 pk-yr smoking history (Age >= 50y) TECHNIQUE: Noncontrast, helical low dose CT (LDCT) of chest per standard department protocol. The examination was performed with the adjustment of mA according to the patient size and/or the use of Iterative Reconstruction Technique. COMPARISON: No comparison FINDINGS: Lung screening specific: 5 mm left lower lobe nodules present along the left major fissure. 2Partially calcified right lower lobe nodules are present suggesting granulomas measuring up to 5 mm. Additional findings: Centrilobular emphysema present. There is evidence of coronary bypass. Calcifications are present of the aorta. Limited views the upper abdomen are normal. Coronary artery calcifications are present. Procedure Note Sae Victor MD - 05/30/2024 CT LUNG SCREENING - LOW DOSE COMPUTED TOMOGRAPHY OF THE THORAX WITHOUT CONTRAST DATE: 05/30/2024 11:15 AM HISTORY: Lung cancer screening, >= 20 pk-yr smoking history (Age >= 50y) TECHNIQUE: Noncontrast, helical low dose CT (LDCT) of chest per standard department protocol. The examination was performed with the adjustment of mA according to the patient size and/or the use of Iterative Reconstruction Technique. COMPARISON: No comparison FINDINGS: Lung screening specific: 5 mm left lower lobe nodules present along the left major fissure. 2Partially calcified right lower lobe nodules are present suggesting granulomas measuring up to 5 mm. Additional findings: Centrilobular emphysema present. There is evidence of coronary bypass. Calcifications are present of the aorta. Limited views the upper abdomen are normal. Coronary artery calcifications are present. IMPRESSION: 1. 5 mm nodule along the left major fissure in the left lower lobe. LUNG RADS Category Lung RADS: Category 3 (Probably Benign); Recommend followup LDCT in 6 months DICTATION LOCATION: Location [address] [place] [address] ORDERABLES Steph l Result from Last 3 Months or Most Recently Relevant to Health Maintenance Insurance MEDICARE PART A AND B [employer] Medicare Part D Advance Directives For more information, please contact: [phone] * Full Code (Latest Code Status on File) Date Activated Date Inactivated Comments 09/21/2024 11:07 AM 09/22/2024 12:43 PM * Full Code Date Activated Date Inactivated Comments 01/07/2021 9:08 AM 01/07/2021 8:44 PM * Full Code Date Activated Date Inactivated Comments 09/04/2020 10:28 AM 09/04/2020 4:14 PM * Full Code Date Activated Date Inactivated Comments 09/04/2020 8:05 AM 09/04/2020 10:28 AM Care Teams Engine Turner Relationship Specialty Start Date End Date Alon Ventura MD [address] [place] [phone] PCP - General Family Practice 07/07/21
--- OUTSIDE RECORDS SUMMARY | 2025-02-12 00:28 | XMS_ITS | Encounter Summary ---
Author Organization [facility] Address [address] [place] [address] Care Team Providers Care Barrel Burner Name Role Phone Hardeep Payan MD Primary Care Provider [phone] Non-Staff, Provider Primary Care Provider Lorelei swift Encounter Details Date Type Department Care Team (Late st Contact Info) Description 12/04/2020 [employer] Message Enc [facility] Medical Group Family & Internal Medicine [facility] [id number] [place] [phone] [place] [id number] [place] [address] RE: Test Results Social History Tobacco Use Types Packs/Day Years Used Date Smoking Tobacco: Former Cigarettes Q uit: 05/08/2010 Smokeless Tobacco: Never Alcohol Use Standard Drinks/Week Comments Yes 0 (1 standard drink = 0.6 oz pur e alcohol) occsionally PHQ-2 Answer Date Recorded PHQ-2 Score - If the patient scores above 3, please move on to questions 3-9 1 09/06/2019 Sex and Gender Information Value Date Recorded Sex Assigned at Not on file Legal Sex Male 2:04 PM CDT Gender Identity Not on file Sexual Orientation Not on file documented as of this encounter Plan of Treatment Not on file documented as of this encounter Visit Diagnoses Not on filedocumented in this encounter Additional Health Concerns Infection Onset Date Last Indicated Resolved Time COVID-19 Rule Out 06/01/2021 06/01/2021 06/01/2021 1:20 AM GRANITE WORKER documented as of this encounter Care Teams Barrel Burner Relationship Specialty [place] [address] [place] [address] PCP - General FAMILY PRACTICE 09/06/19 07/22/21 Non-Staff, Provider PCP - General 07/23/21 documented as of this encounter
--- OUTSIDE RECORDS SUMMARY | 2025-02-12 00:28 | XMS_ITS | Encounter Summary ---
Author Organization [facility] Address [address] [place] [address] Care Team Providers Care Dry House Attendant Name Role Phone Hardeep Payan MD Primary Care Provider [phone] Non-Staff, Provider Primary Care Provider Lorelei swift Encounter Details Date Type Department Care Team (Late st Contact Info) Description 06/17/2021 [employer] Message Enc [facility] Medical Group Family & Internal Medicine [address] [address] [employer], [facility] Provider Anemia Social History Tobacco Use Types Packs/Day Years [...] on file Sexual Orientation Not on file COVID-19 Exposure Response Date Recorded In the last 10 days, have yo u been in contact with someone who was confirmed or suspected to have Coronavirus/COVID-19? No / Unsure 06/11/2021 12:43 PM GEM SETTER documented as of this encounter Plan of Treatment Not on file documented as of this encounter Visit Diagnoses Not on filedocumented in this encounter Additional Health Concerns Assessment Noted Time PHQ-9 Depression Total Score: 0 04/21/19 22 2:11 PM GEM SETTER documented as of this encounter Care Teams Dry House Attendant Relationship Specialty [place] [address] [place] [address] PCP - General FAMILY PRACTICE 09/06/19 07/22/21 Non-Staff, Provider PCP - General 07/23/21 documented as of this encounter
--- OUTSIDE RECORDS SUMMARY | 2025-02-12 00:28 | XMS_ITS | Encounter Summary ---
Author Organization [facility] Address [address] [place] [address] Care Team Providers Care Applications Sales Consultant Name Role Phone Alon Ventura MD Primary Care Provid er Encounter Details Date Type Department Care Team (Late st Contact Info) Description 06/21/2002 Outpatient Historical [facility] Internal Medicine - [place] [address] [place] [phone] Ritesh Salinas MD NO ADDRESS ON FILE Social History Tobacco Use Types Packs/Day Years Used Date Smoking Tobacco: Never Assessed Sex and Gender Information Value Date Recorded Sex Assigned at Not on file Legal Sex Male 3:08 AM LIMOUSINE DRIVER Gender Identity Not on file Sexual Orientation Not on file documented as of this encounter Plan of Treatment Upcoming Encounters Date Type Department Care Team (Late st Contact Info) Description 02/13/2025 10:30 AM CDT Office Visit [facility] [place] [address] [place] [phone] Julien Lafleur MD [address] [facility]. [address] [place], [place] [id number] 03/19/2025 11:30 AM LIMOUSINE DRIVER Office Visit [facility] - [place] [address] [facility] [place] [phone] Alon Ventura MD [address] [facility] [address] [place] [address] 04/23/2025 11:00 AM LIMOUSINE DRIVER Office Visit [facility] [place] [address] [place] [phone] Julien Lafleur MD [address] [place] [id number] documented as of this encounter Visit Diagnoses Not on filedocumented in this encounter Additional Health Concerns Infection Onset Date Last Indicated Resolved Time R/O COVID-19 03/31/2023 03/31/2023 03/31/2023 8:39 PM LIMOUSINE DRIVER documented as of this encounter Care Teams Applications Sales Consultant Relationship Specialty Start Date End Date Alon Ventura MD [address] [facility] [address] [place] [phone] PCP - General Family Practice 07/07/21 documented as of this encounter
--- OUTSIDE RECORDS SUMMARY | 2025-02-12 00:29 | XMS_ITS | Clinical Summary ---
Author Organization [facility] Address [address] [place] [address] Care Team Providers Care Corn Shredder Name Role Phone Julien Lafleur MD Unavailable [phone] Hardeep Payan MD Primary Care Provider [phone] Source Comments [facility],non-owned Affiliates and Associated Physician Practices is amultiple site organization consisting of ambulatory clinics and hospital sitesin [place], [place], [place] and [place]. This disclosure is being madepursuant to the Care Everywhere program and may not contain all information available regarding this patient. Last updated 18.[facility] [employer] Allergies No known active allergies Medications * Be aware that medications may not be up to date on this document. Alwaysverify current medications with the patient. aspirin EC 81 MG TBEC Take 1 Tab by mouth once daily. 30 05/03/2011 Active multivitamin daily (THERAGRAN) tablet Take 1 Tab by mouth daily with food. Active vitamin D3 ([facility] VIT D 5000 HIGH-POTENCY) 5000 UNITS capsule Take 1 capsule by mouth once daily 04/03/2018 Active lisinopril (PRINIVIL; ZESTRIL) 2.5 MG tablet TAKE 1 TABLET BY MOUTH ONCE DAILY 90 tablet 1 03/05/2019 Active metoprolol succinate XL 24hr (TOPROL XL) 25 MG tablet TAKE 1/2 (ONE-HALF) TABLET BY MOUTH ONCE DAILY 15 tablet 5 03/05/2019 Active atorvastatin (LIPITOR) 40 MG tablet TAKE 1 TABLET BY MOUTH ONCE DAILY AT BEDTIME 90 tablet 1 03/05/2019 Active levothyroxine (SYNTHROID) 50 MCG tablet Take 1 tablet by mouth once daily 30 tablet 5 03/09/2019 Active zolpidem (AMBIEN) 10 MG tablet TAKE 1 TABLET BY MOUTH ONCE DAILY AT BEDTIME NEEDED FOR INSOMNIA 30 tablet 3 07/06/2019 Active Active Problems Problem Noted Date Diagnosed Date Impotence due to erectile dysfunction 12/11/2018 Gastroesophageal reflux disease 02/23/2017 Lung nodules 09/23/2016 Bilateral carotid artery disease 05/04/2016 Overview (05/04/2016): Less than 50 percent 04/2016 Essential hypertension with goal blood pressure less than 130/80 01/13/2016 Psychophysiological insomnia 07/25/2015 Hypothyroidism due to acquired atrophy of thyroi d 03/26/2015 Generalized anxiety disorder 10/14/2014 Hypercholesteremia 04/17/2014 Immunizations Immunization Administration Dates Next Due Grid Mobile PRIMARY 18+YR 06/20/2020 INFLUENZA VACCINE, HIGH-DOSE , QUADR. (FLUZONE HIGH-DOSE QUADRIVALENT; 65Y+), 0.7 ML (HD-IIV4) 02/15/2024,03/07/2020,04/23/2019,2016 INFLUENZA VACCINE, HIGH-DOSE , TRIV. (FLUZONE HIGH-DOSE TRIVALENT; 65Y+) (HD-IIV3) 02/15/2024 PNEUMOCOCCAL PPSV23 08/07/2018,03/14/2012 Pneumococcal Pcv13 Conj 07/25/2015 TDAP (7yrs+) 06/12/2015 Social History Tobacco Use Types Packs/Day Years Used Date Smoking Tobacco: Former Cigarettes 1 45 0 06/09/1965 - 06/09/2010 Smokeless Tobacco: Never Tobacco Cessation:Counseling Given: Yes Alcohol Use Standard Drinks/Week Comments Yes 0 (1 standard drink = 0.6 oz pure alcohol) Occasional Wendie's in coffee .....no beer or other alcohol Sex and Gender Information Value Date Recorded Sex Assigned at Not on file Legal Sex Male 5:20 AM [employer] Gender Identity Not on file Sexual Orientation Not on file Last Filed Vital Signs Vital Sign Reading Time Taken Comments Blood Pressure 108/67 07/28/2021 12:20 PM CDT Pulse 64 07/28/2021 12:15 PM CDT Temperature 37.1 C (98.7 F) 07/28/2021 11:40 AM CDT Respiratory Rate 13 07/28/2021 12:15 PM CDT Oxygen Saturation 96% 07/28/2021 12:20 PM CDT Inhaled Oxygen Concentration 40% 04/30/2011 7 :00 PM [employer] Weight 81.2 kg (179 lb) 07/28/2021 8:08 AM CDT Height 175.3 cm (5' 9) 07/28/2021 8:08 AM CDT Body Mass Index 26.43 07/28/2021 8:08 AM CDT Plan of Treatment Health Maintenance Due Date Last Done Comments COLOGUARD (AGES 45-75) - COLON CA SCREENING 1950 CT COLONOGRAPHY - COLON CA SCREENING 1950 FIT - COLON CA SCREENING 1950 FLEX SIG - COLON CA SCREENING 1950 HEPATITIS C SCREENING 07/31/1967 COLON MONITORING 12/30/2018 12/31/2015, 12/31/2015 Colorectal Cancer Screening 12/30/2018 MEDICARE AWV 12 MONTHS 08/08/2019 08/07/2018, 07/25/2017, 04/15/2016 SCREENING FOR DIABETES 12/29/2021 9, 08/19/2017, 05/08/2015, Additional history exists DEPRESSION SCREENING 04/18/2024 Respiratory Syncytial Virus (RSV) Vaccine Pt: or over 60 yrs (1 - 1-dose 75+ series) 2024 COVID-19 VACCINE (3 - 2024- season) 2024 04/08/2021, 06/20/2020 INFLUENZA VACCINE (#1) 2024 4, 02/15/2024, 03/07/2020, Additional history exists DTAP/TDAP/TD VACCINES (2 - Td or Tdap) 06/12/2025 06/12/2015 COLONOSCOPY - COLON CA SCREENING 12/30/2025 12/31/2015, 12/31/2015 PNEUMOCOCCAL VACCINE 50+ Completed 019, 07/25/2015, 03/14/2012 LUNG CANCER SCREENING Discontinued 05/30/2024, 017 HEPATITIS B VACCINE Aged Out No longe r eligible based on patient's age to complete this topic HIB VACCINE Aged Out No longer eligi ble based on patient's age to complete this topic HPV VACCINE Aged Out No longer eligi ble based on patient's age to complete this topic MENINGOCOCCAL (Group B) VACCINE SHARED DECISION-MAKING Aged Out No longer eligible based on patient's age to complete this topic MENINGOCOCCAL GROUPS A/C/Y/W VACCINE Aged Out No longer eligible based on patient's age to complete this topic ZOSTER VACCINE Discontinued Medical Devices Implanted Type Area Real Estate Analyst Device Identifier Shelf Expiration Date Model / Serial / Lot Speedbridge Implant System With Scorpion Multifire Needle [id number] Implanted:Qty: 1 on 07/28/2021 by Jose Elias Castillo MD at [facility] Left: Shoulder [employer] 05/18/2025 [id number] / / [id number] Suture [employer] Suturetak Knotless With #2 [id number] Implanted:Qty: 1 on 07/28/2021 by Jose Elias Castillo MD at [facility] Left: Shoulder [employer] 03/17/2023 [id number] / / [id number] Procedures Procedure Name Priority Date/Time Associated Diagnosis Comments COMPREHENSIVE METABOLIC PANEL Routine 12/29/2018 7:45 AM CDT Essential hypertension with goal blood pressure less than 130/[address] LUNG SCREEN LOW DOSE Routine 09/23/2016 8:33 AM CDT Encounter for screening for lung cancer ENDOSCOPY, COLON, SCREENING Routine 12/31/2015 8:04 AM CDT from Last 3 Months or Most Recently Relevant to Health Maintenance Results * (ABNORMAL) COMPREHENSIVE METABOLIC PANEL (12/29/2018 7:45 AM CDT) Glucose 99 74 - 106 mg/dL [facility] INSURANCE BILL BUN 23 8.4 - 25.7 mg/dL [facility] INSURANCE BILL Creatinine 0.99 0.73 - 1.18 mg/dL [facility] INSURANCE BILL eGFR by MDRD >60 >60 mL/min/1.7 3m2 [facility] INSURANCE BILL eGFR by MDRD >60 >60 mL/min/1.7 3m2 [facility] INSURANCE BILL Sodium 141 136 - 145 mmol/L [facility] INSURANCE BILL Potassium 4.6 3.5 - 5.1 mmol/L [facility] INSURANCE BILL Chloride 109(H) 98 - 107 mmol/L [facility] INSURANCE BILL CO2 23 23 - 31 mmol/L [facility] INSURANCE BILL Calcium 9.0 8.4 - 10.2 mg/dL [facility] INSURANCE BILL Protein Total 6.6 6.4 - 8.3 gm/dL [facility] INSURANCE BILL Albumin 3.8 3.2 - 4.6 gm/dL [facility] INSURANCE BILL Bilirubin Total 0.7 0.2 - 1.2 mg/dL [facility] INSURANCE BILL Alkaline Phosphatase 63 40 - 150 U/L [facility] INSURANCE BILL AST 17 5 - 34 U/L [facility] INSURANCE BILL ALT 15 13 - 61 U/L [facility] INSURANCE BILL Comment:FASTING Blood BLOOD SPECIMEN / Unknown 12/29/2018 7:45 AM CDT 12/29/2018 Narrative Resulting Agency Comment Lab Testing performed at: [address] [id number] Al Lyons DO LAB - CHEMISTRY ORDERABLES Final Result Performing Organization Address City/State/[facility] Co de Phone Number [facility] INSURANCE BILL [address] [place] [address] * CT LUNG CANCER SCREEN LOW DOSE (09/23/2016 8:33 AM CDT) Anatomical Region Laterality Modality Chest Computed Tomogra phy 09/23/2016 9:48 AM CDT Impressions 09/23/2016 10:02 AM CDT Lung rads category 3. Multiple subcentimeter pulmonary nodules with the exception of the nodular opacity in the medial right middle lobe which is favored to represent atelectasis/scarring. Repeat CT in 6 months is recommended. COPD Coronary artery disease ACR Lung-RADS Category/Recommendations: 0: Need prior comparisons or additional images 1: Negative: 12 month follow up LDCT (Low Dose CT) 2: Benign Appearin month follow up LDCT 3: Probably Benign: 6 month follow up LDCT 4A: Suspicious: 3 month follow up LDCT (or immediate PET if >7mm solid component) 4B: Suspicious: Immediate Chest CT or PET if >7mm solid component 4X: Cat 3 or 4A nodules with additional suspicious findings Modifier-S: Significant NON-lung cancer findings Modifier-C: Prior treated Lung Cancer. For details of the ACR Lung-RADS program, categories and recommendations: 1) http://www.acr.org/Quality-Safety/Resources/LungRADS 2) Internet search: Lung-RADS Lung Cancer Screening Narrative 09/23/2016 10:[address] Chest Without Contrast INDICATION: Encounter for screening for malignant neoplasm of respiratory organs TECHNIQUE: Axial images of the chest without contrast were obtained and reconstructions performed. FINDINGS: Minimal bullous changes present within the right lung apex with associated scarring. Centrilobular and paraseptal emphysema is also present. There is a nodular opacity at the medial right middle lobe on series 4, image 14 measuring 10 mm. There is associated mild bronchiectasis leading up to this with volume loss. A 7 mm nodule is seen within the right lower lobe on image 115. There is also a 6 mm nodule on image 124 within the right lower lobe. There is a 6 mm nodule within the left lower lobe on image 87. Scattered linear areas of scarring/atelectasis are present. Calcific atherosclerosis is present in addition to coronary artery calcification. There has been prior median sternotomy. No mediastinal, hilar, or axillary lymphadenopathy. No pleural or pericardial effusion. There is a simple cyst within the left lobe of the liver No suspicious osseous lesion. Procedure Note Laurita Estrada MD - 09/23/2016 CT Chest Without Contrast INDICATION: Encounter for screening for malignant neoplasm of respiratory organs TECHNIQUE: Axial images of the chest without contrast were obtained and reconstructions performed. FINDINGS: Minimal bullous changes present within the right lung apex with associated scarring. Centrilobular and paraseptal emphysema is also present. There is a nodular opacity at the medial right middle lobe on series 4, image 14 measuring 10 mm. There is associated mild bronchiectasis leading up to this with volume loss. A 7 mm nodule is seen within the right lower lobe on image 115. There is also a 6 mm nodule on image 124 within the right lower lobe. There is a 6 mm nodule within the left lower lobe on image 87. Scattered linear areas of scarring/atelectasis are present. Calcific atherosclerosis is present in addition to coronary artery calcification. There has been prior median sternotomy. No mediastinal, hilar, or axillary lymphadenopathy. No pleural or pericardial effusion. There is a simple cyst within the left lobe of the liver No suspicious osseous lesion. IMPRESSION Lung rads category 3. Multiple subcentimeter pulmonary nodules with the exception of the nodular opacity in the medial right middle lobe which is favored to represent atelectasis/scarring. Repeat CT in 6 months is recommended. COPD Coronary artery disease ACR Lung-RADS Category/Recommendations: 0: Need prior comparisons or additional images 1: Negative: 12 month follow up LDCT (Low Dose CT) 2: Benign Appearin month follow up LDCT 3: Probably Benign: 6 month follow up LDCT 4A: Suspicious: 3 month follow up LDCT (or immediate PET if >7mm solid component) 4B: Suspicious: Immediate Chest CT or PET if >7mm solid component 4X: Cat 3 or 4A nodules with additional suspicious findings Modifier-S: Significant NON-lung cancer findings Modifier-C: Prior treated Lung Cancer. For details of the ACR Lung-RADS program, categories and recommendations: 1) http://www.acr.org/Quality-Safety/Resources/LungRADS 2) Internet search: Lung-RADS Lung Cancer Screening Al Lyons DO CT ORDERABLES Final Result * ENDOSCOPY, COLON, SCREENING (12/31/2015 8:04 AM CDT) Report Endoscopy POC _ Patient Name: Perlita Castillo Procedure Date: 12/31/2015 8:04 AM Date of : 1950 Admit Type: Outpatient Age: 65 Room: ROOM 2 Gender: Male Note Status: Finalized Attending MD: Jorden Bales MD _ Procedure: Colonoscopy Indications: Screening for colorectal malignant neoplasm, This is the patient's first colonoscopy Providers: Jorden Bales MD, Lizzette Hills RN, Kobi Zhou CRNA (Anesthesia Staff) Referring MD: Al Lyons DO (Referring MD) Medicines: Propofol per Anesthesia Complications: No immediate complications. _ Procedure: After I obtained informed consent, the scope was passed under direct vision. Throughout the procedure, the patient's blood pressure, pulse, and oxygen saturations were monitored continuously. The CF-[id number] was introduced through the anus and advanced to the terminal ileum. The quality of the bowel preparation was good. Findings: Five sessile polyps were found in the sigmoid colon. The polyps were 2 to 3 mm in size. These polyps were removed with a hot biopsy forceps. Resection and retrieval were complete. Multiple small-mouthed diverticula were found in the sigmoid colon and in the descending colon. The exam was otherwise without abnormality. _ Impression: - Five 2 to 3 mm polyps in the sigmoid colon. Resected and retrieved. - Diverticulosis in the sigmoid colon and in the descending colon. - The examination was otherwise normal. Recommendation: - Await pathology results. - High fiber diet. - Repeat colonoscopy in 3 years for surveillance. Procedure Code(s): --- Professional --- 46072, Colonoscopy, flexible; with removal of tumor(s), polyp(s), or other lesion(s) by hot biopsy forceps --- Technical --- 68133, Colonoscopy, flexible; with removal of tumor(s), polyp(s), or other lesion(s) by hot biopsy forceps Diagnosis Code(s): --- Professional --- Z12.11, Encounter for screening for malignant neoplasm of colon D12.5, Benign neoplasm of sigmoid colon K57.30, Diverticulosis of large intestine without perforation or abscess without bleeding --- Technical --- Z12.11, Encounter for screening for malignant neoplasm of colon D12.5, Benign neoplasm of sigmoid colon K57.30, Diverticulosis of large intestine without perforation or abscess without bleeding CPT copyright 2015 [employer]. All rights reserved. The codes documented in this report are preliminary and upon tear down man review may be revised to meet current compliance requirements. ___ Jorden Bales MD 12/31/2015 8:34:57 AM This report has been signed electronically. Number of Addenda: 0 Note Initiated On: 12/31/2015 8:04 AM Estimated Blood Loss: Estimated blood loss: none. [facility] 12/31/2015 8:04 AM CDT us Jorden Bales MD GI PROCEDURE ORDERABLES Edit ed Result - Final [facility] from Last 3 Months or Most Recently Relevant to Health Maintenance Insurance ANTH MEDICARE MEDICARE Advance Directives * FULL RESUSCITATION (Latest Code Status on File) Date Activated Date Inactivated Comments 04/30/2011 12:16 PM 05/06/2011 2:34 AM * FULL RESUSCITATION Date Activated Date Inactivated Comments 04/27/2011 10:01 AM 04/30/2011 12:16 PM * Full Code Date Activated Date Inactivated Comments 06/10/2010 2:52 AM 06/13/2010 5:14 AM * Full Code Date Activated Date Inactivated Comments 06/10/2010 1:29 AM 06/10/2010 2:52 AM Care Teams Corn Shredder Relationship Specialty [place] [address] [place] [address] PCP - General 12/23/21 Julien Lafleur MD [address] [place] [address] Cardiovascular Disease 10/02/13
[2025-02-12 11:35] VITALS: BP 149/80; PULSE 61; RESP 18; TEMP 36.5; O2SAT 98; BMI 27.1
[2025-02-12] MEDS: LACTATED RINGERS 1,000 ML 150 ML IV CONT (11:38)
--- NOTE | 2025-02-12 12:22 | SUR.PREOP ---
DR TRIANA SEEING PT, DR TRIANA SPOKE WITH DR BURGESS CONCERNING PT, PT PROCEDURE CANCELED PER DR'S DISCRETION, PT MADE AWARE AND SPOKE WITH DOCTORS, PT STATES UNDERSTANDING AND NO CONCERN, PT DISCHARGED.
== END 2025-02-12 12:51 | disposition home or self-care (01) ==
PROVIDERS: Referring Provider Internal Medicine Gastroenterology; Visit Provider Internal Medicine Gastroenterology
PROC: 0DJ08ZZ Inspection of Upper Intestinal Tract, Via Natural or Artificial Opening Endoscopic (ICD-10-PCS; principal; 2025-02-12 12:30)
DX: K22.70 Barrett's esophagus without dysplasia (principal); Z53.9 Procedure and treatment not carried out, unspecified reason
CPT/HCPCS: 99211; G0463; J7120